=== PATIENT | male | born 1990 | race Caucasian/White ===

== ENCOUNTER 2016-02-26 14:32 | Emergency (ER) | payer MEDICAID ==
[2016-02-26] MEDS ORDERED: OPTIRAY 350 100 ML VIAL HMH IV ONE (14:33)
[2016-02-26] MEDS ORDERED: DICYCLOMINE 20MG/2ML VIAL IM ONE (15:26)
[2016-02-26] MEDS ORDERED: ONDANSETRON 4 MG VIAL ONE (15:26)
[2016-02-26] MEDS ORDERED: DILAUDID 1 MG/ML AMP ONE (16:38)
== END 2016-02-26 17:48 | disposition home or self-care (01) ==
LOC: ER 14:32
DX: A08.4 Viral intestinal infection, unspecified (principal)
CPT/HCPCS: 36415; 74177; 80053; 81001; 83690; 85025; 87088; 96374; 96375